=== PATIENT | male | born 2000 | race Caucasian/White ===

== ENCOUNTER 2024-07-21 08:15 | Inpatient (IN) | payer OTHER, SELFPAY ==
[2024-07-21] VITALS (10 sets, daily range): BP systolic 114–128; BP diastolic 70–90; PULSE 85–134; RESP 16–18; TEMP 36.5–37.2; O2SAT 95–100; BMI 24.6
--- NOTE | 2024-07-21 08:29 | ED.RN ---
Sx started Wednesday and have been worse. Now hard to swallow. [facility] tested him for strep and covid were both negative.
--- NOTE | 2024-07-21 08:44 | CT_ITS ---
STUDY: CT SOFT TISSUE NECK WITH CONTRAST REASON FOR EXAM: Male, 23 years old. Peritonsillar abscess ?? RADIATION DOSAGE (If Supplied By Facility): CTDIvol = ( 14.97 ) mGy, DLP = ( 403.90 ) mGycm TECHNIQUE: The patient was scanned in a multi-detector CT scanner. High resolution transaxial imaging was performed following intravenous administration of 100 CC ISOVUE 370. Sagittal and coronal images were reconstructed. Individualized dose optimization techniques were used for this CT. COMPARISON: None. FINDINGS: Normal bilateral parotid glands. Normal bilateral white washer piler spaces. Normal bilateral parapharyngeal spaces. Normal bilateral carotid spaces. Normal bilateral sublingual and submandibular glands and spaces. Normal visualized nasopharynx. Normal retropharyngeal space. Normal perivertebral space. There is diffuse enlargement of the left faucial tonsils . There is a subtle 9.1 mm x 13.5 mm area of decreased attenuation within the base of the left tonsil suggestive possible early abscess. The visualized tongue, tongue base and oropharynx are normal. The visualized cervical lymph nodes (levels I-) are within normal size limits, and maintain normal morphology. There is no demonstrated solid or cystic mass lesion. There is no abnormal contrast enhancement. Normal epiglottis, bilateral vallecula and hypopharynx. The pre-epiglottic and paraglottic adipose spaces are normal. Normal visualized bilateral piriform sinuses, aryepiglottic folds, vocal cords, and arytenoid-cricoid articulations. Normal subglottic trachea. Normal bilateral lobes of the thyroid gland. Normal visualized pulmonary apices. Normal visualized paranasal sinuses. Normal visualized cervical spine. CT/Soft Tissue Neck WITH Contrast IMPRESSION: Diffuse enlargement of the left faucial tonsils with a subtle 9.1 mm x 13.5 mm area of decreased attenuation suggestive of possible early abscess formation. Electronically Signed: Herb Whelan MD at 9:53 EDT ,
--- NOTE | 2024-07-21 08:46 | EDS_ITS ---
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 Starting to have difficulty swallowing. Saw the [facility] they did 2 different rapid strep's which were negative. He has been on no antibiotics. He has been using Tylenol and ibuprofen. Says it is getting worse. Never had any throat surgery. Prior similar symptoms: No Recent Illness/Hospitalization: No ROS ROS ED ROS Narrative Sore throat. Painful swallowing. Constitutional Constitutional ED: Denies chills or fever(s) Eyes Eyes: Denies blurry vision ENT ENT ED: Reports ear pain and sore throat Cardiovascular Cardiovascular: Denies chest pain Respiratory/Chest Respiratory/Chest: Denies cough Gastrointestinal Gastrointestinal: Denies abdominal pain Genitourinary Genitourinary ED: Denies dysuria Musculoskeletal Musculoskeletal: Denies arthralgias Integumentary Denies abscess Neurologic Neurologic: Denies headache(s) Psychiatric Psychiatric: Denies anxiety Endocrine Endocrinology: Denies cold intolerance Hematologic/Lymphatic Hematologic/Lymphatic: Denies easy bleeding Allergic/Immunologic Allergic/Immunologic ED: Denies mouth swelling PFSH PFSH Medical History no medical history no medical history Allergy/AdvReac Type Severity Reaction Status Date / Time No Known Allergies Allergy Verified 07/21/24 08:31 Surgical History no surgical history no surgical history Social History Smoking Status: Current some day smoker tobacco type: cigarettes EXAM Physical Exam Narrative Exam Narrative: 23-year-old male vital signs are stable is afebrile currently. Does not look septic or toxic. H EENT exam mild dry mucous membranes. Posterior pharynx left side appears to be enlarged or red. I do not see specific exudate. He may have a peritonsillar abscess. He is able to swallow but is difficult. TMs are unremarkable. Neck neck tenderness on the left. Trachea midline. No mass. Lungs clear to auscultation. Heart tachycardic no murmur. Rate of 110. Abdomen soft nontender. Back nontender. Moving all 4 extremities. Awake and alert. No focal motor deficits. Const Vital Signs: 07/21/24 08:17 07/21/24 08:19 07/21/24 09:19 Temperature 98.3 F 98.5 F 97.7 F L Temperature Source Temporal Oral Temporal Pulse Rate 134 H 108 H 100 Respiratory Rate 18 16 16 Blood Pressure 119/89 H 128/90 H 126/83 H Blood Pressure Mean 99 102 97 Pulse Ox 98 96 99 Oxygen Delivery Method Room Air Room Air Room Air Positive well nourished and well developed; Negative for obese, cachectic or contractures General Appearance ED: well developed and NAD; Negative for cachectic, contractures, cyanotic, diaphoretic or pallor Nutritional Appearance: Negative for cachectic or obese HEENT Reports dry mucous membranes normocephalic and atraumatic Mouth ED: Yes dry mucous membranes Mouth: dry mucous membranes Throat: posterior oropharynx abnormal Eyes PERRL and EOMs intact bilaterally General Eye ED: Negative for pale conjunctiva or scleral icterus Neck no lymphadenopathy, supple, no meningeal signs and no JVD General: Negative for anterior neck swelling or lymphadenopathy Resp normal respiratory effort and clear to auscultation bilaterally Effort and Inspection: Negative for retractions Auscultation: Negative for rales, rhonchi, wheezes or diminished lung sounds Cardio S1 normal heart sound, S2 normal heart sound and no murmurs Rate: tachycardic Rhythm: regular rhythm GI non-tender, non-distended and no masses Inspection: Negative for abdominal distention Palpation: soft; Negative for tender or guarding Back/Spine no CVA tenderness and normal ROM General Back: Negative for CVA tenderness Cervical Spine: Negative for cervical spine tenderness Thoracic Spine / Upper Back: Negative for thoracic spinal tenderness Lumbar Spine / Lower Back: Negative for lumbar spinal tenderness Sacrum: Negative for tenderness Extremity normal to inspection and full ROM General Extremety ED: Negative for cyanosis, tenderness or other findings General Extremity: Negative for cyanosis or other findings Neuro oriented x3 and CN's II-XII intact bilaterally Sensorium / Orientation: alert, oriented to person, oriented to place and oriented to time; Negative for orientation impaired, lethargic or stuporous Motor Exam: strength 5/5 throughout Psych mental status grossly normal Appearance: Negative for other Attitude: No agitated Mood & Affect: Negative for depressed, anxious or tearful Skin General Skin Exam: Negative for jaundice or pallor Lesions: no lesions Rashes: no rashes MDM MDM MDM Narrative Medical decision making narrative: Healthy 23-year-old male with sore throat and difficulty swallowing. Suspect peritonsillar abscess on the left. CAT scan labs are pending. IV fluids for mild dehydration. Repeat exam patient is doing well at 10:10 AM. I discussed his test results. He is comfortable with admission for IV antibiotics. To be started on IV Unasyn. He was already given Decadron and a liter normal saline. I have both the hospitalist and ENT on page. History & Record Review Discussion w/independent historian: Patient Additional record(s) reviewed:: No prior records Lab Data Attestation: I reviewed the patient's lab results. Lab results narrative: CBC shows white count 13.4. H&H 15 and 43. Platelets 256. Electrolytes show gap 9. Normal BUN and creatinine 12 and 1.1. Glucose 108. Monoscreen negative. CAT scan CT soft tissue of the neck is consistent with left peritonsillar abscess. Labs: Laboratory Results - last 24 hr 07/21/24 08:51 WBC 13.4 H RBC 4.87 Hgb 15.1 Hct 43.6 MCV 89.5 MCH 31.0 MCHC 34.6 RDW Std Deviation 36.6 RDW Coeff of Sylvester 11.2 L Plt Count 256 MPV 9.4 Immature Gran % (Auto) 0.500 Neut % (Auto) 79.0 H Lymph % (Auto) 10.5 L [place] % (Auto) 9.6 Eos % (Auto) 0.1 Baso % (Auto) 0.3 Absolute Neuts (auto) 10.6 H Absolute Lymphs (auto) 1.41 Nucleated RBC % 0 Sodium 137 Potassium 3.8 Chloride 104 Carbon Dioxide 24.0 Anion Gap 9 BUN 12 Creatinine 1.13 Estim Creat Clear Calc 100.04 Est GFR (MDRD) Af Amer 105 Est GFR (MDRD) Non-Af 87 BUN/Creatinine Ratio 10.6 Glucose 108 H Calcium 10.3 H Monoscreen Negative Radiography Diagnostic Testing: Clinical Impression(s) from Imaging Studies Soft Tissue Neck CT 07/21/24 08:44 IMPRESSION: Diffuse enlargement of the left faucial tonsils with a subtle 9.1 mm x 13.5 mm area of decreased attenuation suggestive of possible early abscess formation. Electronically Signed: Herb Whelan MD at 9:53 EDT , Discharge Plan Dx/Rx/DC Orders Clinical Impression: Abscess, peritonsillar, Leukocytosis, Difficulty in swallowing Disposition Disposition: Acute Care Hospital [facility]
[2024-07-21] MEDS: 0.9% Normal Saline (1000mL) 1,000 ML 1000 ML IV (08:53)
[2024-07-21] MEDS: dexAMETHasone 10 MG/ML Vial IV (08:54)
[2024-07-21 08:59] LABS: Absolute Lymphocyte Count 1.41 X10^3/uL (0.83-4.51); Absolute Neutrophil Count 10.6 X10^3/uL (2.0-7.7); Basophil# 0.04 X10^3/uL; Basophil% 0.3 % (0-1); Eosinophil# 0.01 X10^3/uL; Eosinophils% 0.1 % (0-5); Hematocrit 43.6 % (40-54); Hemoglobin 15.1 g/dL (13.0-16.5); Lymphocyte # 1.41 X10^3/ul (0.83-4.51); Lymphocyte % 10.5 % (19-41); Mean Corp Hgb Conc 34.6 g/dL (32-36); Mean Corpuscular Volume 89.5 fL (80-94); Mean Platelet Vol. 9.4 fl (6.2-12.0); Monocyte# 1.29 X10^3/uL; Monocyte% 9.6 % (0-10); NRBC Flagged by Analyzer 0 % (0-5); Platelet Count 256 K/mm3 (150-450); RBC Distribution Width CV 11.2 % (11.6-14.6); RBC Distribution Width SD 36.6 fl (35.1-43.9); Red Blood Count 4.87 M/mm3 (4.6-6.2); White Blood Count 13.4 K/mm3 (4.4-11.0)
[2024-07-21 09:13] LABS: Anion Gap 9 (5-15); BUN 12 mg/dL (7-18); BUN/Creat Ratio 10.6 RATIO (10-20); Calcium,Total 10.3 mg/dL (8.5-10.1); Chloride 104 mmol/L (98-107); Creatinine, Serum 1.13 mg/dL (0.70-1.30); EST Glomerular Filtration Rate 87 mL/min (>60); Est Glom Filt Rate - Afr Amer 105 mL/min (>60); Estimated Creatinine Clearance 100.04 ml/min; Glucose 108 mg/dL (74-106); Potassium 3.8 mmol/L (3.5-5.1); Sodium Level 137 mmol/L (136-145)
[2024-07-21 09:24] LABS: Internal QC Validated? YES +Cl - CLEAR BKGD; Monotest Negative (Negative); Record Kit Lot#, Mono 13241033
--- NOTE | 2024-07-21 10:13 | HP.PCM.HOS_ITS ---
HPI - General General Date of Admission: 07/21/24 Date of Service: 07/21/24 Chief Complaint: sore throat HPI Narrative CAESAR HAND, is a 23 M who is a student at [employer] who presents via the ED on 07/21/2024 with a complaint of sore throat. His symptoms had been going on for 3 days prior to admission, and gradually worsening. HE was now having difficulty swallowing. He denied any fever, chills, chest pain, palpitations, dizziness, nausea, vomiting or any other symptoms. Review of systems was otherwise negative. He was seen in the [facility] clinic and had 2 rapid strep tests that were negative. Vitals in the ED were BP of 119/80, NE of 104, RR of 16 and temp of 99F. He was saturating at 96% on room air. CBC shwoed hb of 15.1, wbc of 13.4 and platelets of 256. Chemistry was unremarkable, apart from calcium level of 10.3. Monospot screen was negative.Soft tissue neck CT showed diffuse enlargement of the left faucial tonsils with a ubtle 9.1mm x 13.5mm area of decreased attenuation suggestive of possible early abscess formation. HE is being admitted to be managed for peritonsillar abscess. [facility] Medical History no medical history Home Medications ?Medication ?Instructions ?Recorded ?Last Taken ?Type acetaminophen 500 mg tablet 1,000 mg PO Q6H PRN fever or pain 07/21/24 07/20/24 History multivitamin 1 tab PO DAILY 07/21/24 07/20/24 History Allergy/AdvReac Type Severity Reaction Status Date / Time No Known Allergies Allergy Verified 07/21/24 08:31 Surgical History no surgical history Social History Smoking Status: Never smoker ROS Constitutional Constitutional: Reports chills and fever(s); Denies anorexia, fatigue or weakness Eyes Eyes: Denies change in vision ENT HEENT: Reports dysphagia and sore throat; Denies epistaxis, headache(s), nasal congestion, nasal discharge, post nasal drip or sinus pressure Cardiovascular Cardiovascular: Denies chest pain, dyspnea on exertion, edema, lightheadedness, orthopnea, palpitations, paroxysmal nocturnal dyspnea, rapid heart rate or syncope Respiratory/Chest Respiratory/Chest: Denies cough, dyspnea, productive cough, shortness of breath at rest or shortness of breath with exertion Gastrointestinal Gastrointestinal: Denies abdominal pain, constipation, diarrhea, dyspepsia, nausea or vomiting Genitourinary Genitourinary: Denies burning urination or dysuria Musculoskeletal Musculoskeletal: Denies joint pain Neurologic Neurologic: Denies confusion, dizziness, focal weakness, headache(s), numbness, seizures or syncope Psychiatric Psychiatric: Denies anxiety or depression Endocrine Endocrinology: Denies change in body appearance Vital Signs Vital Signs Vital Signs: 07/21/24 08:17 07/21/24 08:19 07/21/24 09:19 Temperature 98.3 F 98.5 F 97.7 F L Temperature Source Temporal Oral Temporal Pulse Rate 134 H 108 H 100 Respiratory Rate 18 16 16 Blood Pressure 119/89 H 128/90 H 126/83 H Blood Pressure Mean 99 102 97 Pulse Ox 98 96 99 Oxygen Delivery Method Room Air Room Air Room Air 07/21/24 10:00 Temperature 99.0 F Temperature Source Oral Pulse Rate 104 H Respiratory Rate 16 Blood Pressure 119/80 Blood Pressure Mean 93 Pulse Ox 96 Oxygen Delivery Method Room Air Weight Weight: 162 lb Body Mass Index (BMI) 24.6 Physical Exam Const alert, oriented x3 and no apparent distress General Appearance: cooperative HEENT normocephalic, head/scalp atraumatic, hearing grossly normal bilaterally, moist oral mucous membranes and oropharynx normal HEENT Narrative: throat examination shows massively swollen and erythematous tonsils. His voice is muffled Mouth: oral and palatal mucosa normal Eyes PERRL, EOMs intact bilaterally and conjunctivae normal Neck supple and no JVD Resp normal respiratory effort, no retractions, no use of accessory muscles and clear to auscultation bilaterally Cardio regular rate, regular rhythm, S1 normal heart sound, S2 normal heart sound and no murmurs GI normal to inspection, nondistended, normoactive bowel sounds, soft to palpation, non-tender and non-distended Extremity normal to inspection, full ROM and no clubbing, cyanosis or edema Neuro oriented x3, CN's II-XII intact bilaterally, moves all extremities and no focal motor deficits Sensorium / Orientation: awake and alert Motor Exam: strength 5/5 throughout Psych affect normal Results Lab / Micro Data 07/21/24 08:51 07/21/24 08:51 Labs: Laboratory Results - last 24 hr 07/21/24 08:51: WBC 13.4 H, RBC 4.87, Hgb 15.1, Hct 43.6, MCV 89.5, MCH 31.0, MCHC 34.6, RDW Std Deviation 36.6, RDW Coeff of Sylvester 11.2 L, Plt Count 256, MPV 9.4, Immature Gran % (Auto) 0.500, Neut % (Auto) 79.0 H, Lymph % (Auto) 10.5 L, [place] % (Auto) 9.6, Eos % (Auto) 0.1, Baso % (Auto) 0.3, Absolute Neuts (auto) 10.6 H, Absolute Lymphs (auto) 1.41, Nucleated RBC % 0, Sodium 137, Potassium 3.8, Chloride 104, Carbon Dioxide 24.0, Anion Gap 9, BUN 12, Creatinine 1.13, Estim Creat Clear Calc 100.04, Est GFR (MDRD) Af Amer 105, Est GFR (MDRD) Non-Af 87, BUN/Creatinine Ratio 10.6, Glucose 108 H, Calcium 10.3 H, Monoscreen Negative Imaging Radiology Impression Soft Tissue Neck CT 07/21/24 08:44 IMPRESSION: Diffuse enlargement of the left faucial tonsils with a subtle 9.1 mm x 13.5 mm area of decreased attenuation suggestive of possible early abscess formation. Electronically Signed: Herb Whelan MD at 9:53 EDT Reading Location ID and State: [address] [place] [address] , Service support , Assessment & Plan Assessment/Plan (1) Abscess, peritonsillar: PLAN: Plan #Peritonsillar abscess * admit to med surg * complained of a sore throat for 4 days prior to admission, with difficulty swallowing. Symptoms had gradually worsened * had negative rapid strep test in the [facility] * get throat swab for culture * CT soft tissue neck showed diffuse enlargement of the left faucial tonsils with a subtle 9.1mm x 13.5mm area of decreased attenuation suggestive of possible early abscess formation * started on IV unasyn in the ED; will continue * hydrate gently with iVF * PO tylenol, PO oxycodone and IV morphine prn for pain * consult ENT if dysphagia worsens * give IV solumedrol 40mg q8 * DVT prophylaxis: low risk. Encourage ambulation Charges/Coding Visit Charges Inpatient E&M: 37539 Init Hosp L3
[2024-07-21] MEDS: Ondansetron 4 MG/2 ML Vial IV (10:57)
[2024-07-21] MEDS: morphine 8 MG/ML Syringe 6 MG IV (10:58)
[2024-07-21] MEDS: Ampicillin/Sulbactam 3 GM in 0.9% Normal Saline (100mL MB+) 100 ML IV ×3 (10:58→23:45)
[2024-07-21] MEDS: 0.9% Normal Saline (1000mL) 1,000 ML 150 ML IV ×2 (12:55→20:13)
--- NOTE | 2024-07-21 17:41 | NURSING ---
pharmacy notified 1800 unasyn missing-please send
--- NOTE | 2024-07-21 17:44 | NURSING ---
arrives from ER, pt able to swallow own saliva and clear liquids without difficulty-voice sounds throaty when he talks denies any trouble breathing, pox is 98% on room air-HOB is 60 degrees elevated-skin color pink
[2024-07-22 02:58] VITALS: BP 96/54; PULSE 60; RESP 14; TEMP 36.8; O2SAT 100
[2024-07-22 05:39] LABS: Absolute Lymphocyte Count 1.37 X10^3/uL (0.83-4.51); Absolute Neutrophil Count 10.1 X10^3/uL (2.0-7.7); Basophil# 0.01 X10^3/uL; Basophil% 0.1 % (0-1); Hematocrit 39.5 % (40-54); Hemoglobin 13.4 g/dL (13.0-16.5); Lymphocyte # 1.37 X10^3/ul (0.83-4.51); Lymphocyte % 11.3 % (19-41); Mean Corp Hgb Conc 33.9 g/dL (32-36); Mean Corpuscular Hgb 30.9 pg (27.0-32.0); Mean Corpuscular Volume 91.2 fL (80-94); Mean Platelet Vol. 9.5 fl (6.2-12.0); Monocyte% 4.9 % (0-10); NRBC Flagged by Analyzer 0 % (0-5); Neutrophil # 10.07 X10^3/uL (2.7-7.7); Platelet Count 280 K/mm3 (150-450); RBC Distribution Width CV 10.9 % (11.6-14.6); Red Blood Count 4.33 M/mm3 (4.6-6.2); White Blood Count 12.1 K/mm3 (4.4-11.0)
[2024-07-22 06:01] LABS: Anion Gap 6 (5-15); BUN 13 mg/dL (7-18); BUN/Creat Ratio 16.4 RATIO (10-20); Calcium,Total 9.8 mg/dL (8.5-10.1); Chloride 108 mmol/L (98-107); Creatinine, Serum 0.79 mg/dL (0.70-1.30); EST Glomerular Filtration Rate 131 mL/min (>60); Est Glom Filt Rate - Afr Amer 158 mL/min (>60); Glucose 146 mg/dL (74-106); Potassium 4.4 mmol/L (3.5-5.1); Sodium Level 138 mmol/L (136-145)
[2024-07-22] MEDS: Ampicillin/Sulbactam 3 GM in 0.9% Normal Saline (100mL MB+) 100 ML IV ×3 (06:30→17:24)
[2024-07-22 08:10] VITALS: BP 114/59; PULSE 70; RESP 16; TEMP 36.8; O2SAT 98
--- NOTE | 2024-07-22 10:40 | CASEMGMT ---
GHADA STOKES Assessment Face to Face with patient for initial transition planning/care coordination assessment. GHADA STOKES introduced self and role at [facility], pt voices understanding. Pt is A&Ox4 and is resting comfortably in bed and is calm. Care providers, pharmacy, and demographics verified. PCP: No PCP. Declined list Specialists: denies Preferred Pharmacy: [facility] Insurance: MMO Prescription Benefit: Yes LNOK: Ene Whitlock (M), Roman Whitlock (F) Living Arrangements: Pt lives with 3 roommates in a single story home with 2 steps to enter ADLs/IADLs: Ind Transportation: Self, GF, Parents DME: Denies HHC/SNF: Denies Pt?s goal: Home Plan: Home no needs. 6-click=24. Pt denies needs. Pt denies further questions or concerns. Eduardo Dutta RN, CM
[2024-07-22] MEDS: FLU VACC 2024-25(6MOS UP)/PF 45 MCG/0.5 ML SYRINGE IM (11:22)
[2024-07-22] MEDS: 0.9% Saline Lock 10 ML Syringe IV ×2 (11:23→14:09)
--- NOTE | 2024-07-22 12:30 | PN_ITS ---
Subjective Subjective Patient seen and examined. He felt much better today. He had no active complaints. He states his voice is much clearer in his back. However his voice usually sounds. His sore throat has also improved and he has minimal pain. Review of symptoms otherwise negative. His girlfriend was by his bedside. Objective Data Objective Data Vital Signs: Vital Signs Temp Pulse Resp BP Pulse Ox O2 Del Method 98.2 F 70 16 114/59 L 98 Room Air 07/22/24 08:10 07/22/24 08:10 07/22/24 08:10 07/22/24 08:10 07/22/24 08:10 07/22/24 08:10 Oxygen Delivery Method Room Air Weight: 162 lb Body Mass Index (BMI) 24.6 Intake & Output: Intake and Output for Last 24 Hours 07/20/24 07/21/24 07/22/24 23:59 23:59 23:59 Intake Total 3474 / 3974 2166 / 2166 Balance 3474 / 3974 2166 / 2166 Lab / Micro Data 07/22/24 05:25 07/22/24 05:25 Labs: Laboratory Results - last 24 hr 07/22/24 05:25: WBC 12.1 H, RBC 4.33 L, Hgb 13.4, Hct 39.5 L, MCV 91.2, MCH 30.9, MCHC 33.9, RDW Std Deviation 37.0, RDW Coeff of Sylvester 10.9 L, Plt Count 280, MPV 9.5, Immature Gran % (Auto) 0.700, Neut % (Auto) 83.0 H, Lymph % (Auto) 11.3 L, [place] % (Auto) 4.9, Eos % (Auto) 0.0, Baso % (Auto) 0.1, Absolute Neuts (auto) 10.1 H, Absolute Lymphs (auto) 1.37, Nucleated RBC % 0, Sodium 138, Potassium 4.4, Chloride 108 H, Carbon Dioxide 24.0, Anion Gap 6, BUN 13, Creatinine 0.79, Estim Creat Clear Calc 143.10, Est GFR (MDRD) Af Amer 158, Est GFR (MDRD) Non-Af 131, BUN/Creatinine Ratio 16.4, Glucose 146 H, Calcium 9.8 Physical Exam Const alert, oriented x3 and no apparent distress General Appearance: cooperative and well developed HEENT normocephalic, head/scalp atraumatic, hearing grossly normal bilaterally, moist oral mucous membranes and oropharynx normal HEENT Narrative: voice is much more clear and audible Eyes PERRL, EOMs intact bilaterally and conjunctivae normal Neck supple and no JVD Resp normal respiratory effort, no retractions, no use of accessory muscles and clear to auscultation bilaterally Cardio regular rate, regular rhythm, S1 normal heart sound, S2 normal heart sound and no murmurs GI normal to inspection, nondistended, normoactive bowel sounds, soft to palpation, non-tender and non-distended Extremity normal to inspection, full ROM and no clubbing, cyanosis or edema Neuro oriented x3, CN's II-XII intact bilaterally, moves all extremities and no focal motor deficits Sensorium / Orientation: awake and alert Motor Exam: strength 5/5 throughout Psych affect normal Assessment & Plan Assessment/Plan (1) Abscess, peritonsillar: PLAN: Plan #Peritonsillar abscess * feels much better today. * Sore throat has resolved and his voice is back to baseline * get throat culture pending * CT soft tissue neck showed diffuse enlargement of the left faucial tonsils with a subtle 9.1mm x 13.5mm area of decreased attenuation suggestive of possible early abscess formation * on IV unasyn and IV solumedrol * PO tylenol, PO oxycodone and IV morphine prn for pain * consult ENT if dysphagia worsens * IV solumedrol 40mg q8 * advance to soft, then regular diet as tolerated. * wbc has trended down slightly to 12. * DVT prophylaxis: low risk. Encourage ambulation Charges/Coding Visit Charges Inpatient E&M: 55863 Subs Hosp L2
[2024-07-22 14:18] VITALS: BP 121/83; PULSE 68; RESP 16; TEMP 36.5; O2SAT 96
[2024-07-22 22:16] VITALS: BP 122/79; PULSE 71; RESP 14; TEMP 37; O2SAT 99
[2024-07-23] MEDS: Ampicillin/Sulbactam 3 GM in 0.9% Normal Saline (100mL MB+) 100 ML IV ×2 (00:45→05:41)
[2024-07-23 04:00] VITALS: BP 127/76; PULSE 57; RESP 16; TEMP 36.4; O2SAT 99
[2024-07-23 07:50] LABS: Absolute Lymphocyte Count 1.56 X10^3/uL (0.83-4.51); Absolute Neutrophil Count 11.8 X10^3/uL (2.0-7.7); Basophil# 0.03 X10^3/uL; Basophil% 0.2 % (0-1); Hematocrit 42.2 % (40-54); Hemoglobin 13.9 g/dL (13.0-16.5); Lymphocyte # 1.56 X10^3/ul (0.83-4.51); Lymphocyte % 11.1 % (19-41); Mean Corp Hgb Conc 32.9 g/dL (32-36); Mean Corpuscular Hgb 30.2 pg (27.0-32.0); Mean Corpuscular Volume 91.7 fL (80-94); Mean Platelet Vol. 10.3 fl (6.2-12.0); Monocyte# 0.64 X10^3/uL; Monocyte% 4.5 % (0-10); NRBC Flagged by Analyzer 0 % (0-5); Neutrophil # 11.79 X10^3/uL (2.7-7.7); Neutrophil % 83.8 % (47-70); Platelet Count 344 K/mm3 (150-450); RBC Distribution Width SD 37.3 fl (35.1-43.9); White Blood Count 14.1 K/mm3 (4.4-11.0)
[2024-07-23 08:03] LABS: Anion Gap 8 (5-15); BUN 13 mg/dL (7-18); BUN/Creat Ratio 16.7 RATIO (10-20); Calcium,Total 9.8 mg/dL (8.5-10.1); Chloride 106 mmol/L (98-107); Creatinine, Serum 0.78 mg/dL (0.70-1.30); EST Glomerular Filtration Rate 133 mL/min (>60); Est Glom Filt Rate - Afr Amer 161 mL/min (>60); Estimated Creatinine Clearance 144.94 ml/min; Glucose 150 mg/dL (74-106); Potassium 4.2 mmol/L (3.5-5.1); Sodium Level 140 mmol/L (136-145)
[2024-07-23 08:45] VITALS: BP 115/75; PULSE 60; RESP 18; TEMP 36.4; O2SAT 98
--- NOTE | 2024-07-23 10:04 | DCINST_ITS ---
Discharge Instructions Diet Discharge Diet: No restrictions Activity Discharge Activity: Return to Normal Activity Weight Bearing Status: Weight bearing as tolerated Dressing / Incision Call your doctor if you observe: Fever of 101 or Higher, Shortness of breath, Dizziness, Swelling in the ankles and Chest pain Follow Up Care Test Results: Test results from this visit will be discussed in further detail at your follow- up appointment, if applicable. Discharge Plan Admission Admit Date/Time: 07/21/24 10:22 Primary Reason for Your Visit: peritonsillar abscess Attending Provider: Courtney Mello Primary Care Provider: Care PhysicianBrina Primary Instructions Patient Instructions: Peritonsillar Abscess Discharge Orders/Prescriptions Prescriptions: New amoxicillin-pot clavulanate 875-125 mg tablet 1 tab PO BID Qty: 14 0RF oxycodone 5 mg tablet 5 mg PO Q6H PRN (Reason: pain) 3 Days Qty: 12 0RF Continued acetaminophen 500 mg tablet 1,000 mg PO Q6H PRN (Reason: fever or pain) multivitamin Tablet 1 tab PO DAILY Referrals / Follow Up: Jonah Burgos MD [Med Staff - Active Staff] - Within 2 Weeks Care Physician,No Primary [Primary Care Provider] - Disposition Disposition (needs filled in before D/C Order can be placed): Home, Self Care
--- NOTE | 2024-07-23 10:04 | DS.PCM_ITS ---
Providers Date of Admission: 07/21/24 Date of Discharge: 07/23/24 Primary Care Physician: No Primary Care Phys Reason For Visit: PERITONSILLAR ABSCESS Diagnosis Discharge Diagnosis (1) Abscess, peritonsillar: Status: Acute Code(s): J36 - Peritonsillar abscess Plan #Peritonsillar abscess * feels much better today. * Sore throat has resolved and his voice is back to baseline * get throat culture pending * CT soft tissue neck showed diffuse enlargement of the left faucial tonsils with a subtle 9.1mm x 13.5mm area of decreased attenuation suggestive of possible early abscess formation * on IV unasyn and IV solumedrol * PO tylenol, PO oxycodone and IV morphine prn for pain * consult ENT if dysphagia worsens * IV solumedrol 40mg q8 * advance to soft, then regular diet as tolerated. * wbc has trended down slightly to 12. * DVT prophylaxis: low risk. Encourage ambulation Medications at Discharge Home Medications acetaminophen 500 mg tablet 1,000 mg PO Q6H PRN fever or pain 07/21/24 multivitamin 1 tab PO DAILY 07/21/24 amoxicillin 875 mg-potassium clavulanate 125 mg tablet 1 tab PO BID #14 tabs 07/23/24 oxycodone 5 mg tablet 5 mg PO Q6H PRN pain 3 days #12 tabs 07/23/24 Hospital Course Operations None Procedures None Summary of Care Provided Minutes Spent on Discharge: 45 Hospital Course: CAESAR HAND, is a 23 M who is a student at the [employer] who presents via the ED on 07/21/2024 with a complaint of sore throat. His symptoms had been going on for 3 days prior to admission, and gradually worsening. HE was now having difficulty swallowing. He denied any fever, chills, chest pain, palpitations, dizziness, nausea, vomiting or any other symptoms. Review of systems was otherwise negative. He was seen in the [facility] clinic and had 2 rapid strep tests that were negative. Vitals in the ED were BP of 119/80, IN of 104, RR of 16 and temp of 99F. He was saturating at 96% on room air. CBC shwoed hb of 15.1, wbc of 13.4 and platelets of 256. Chemistry was unremarkable, apart from calcium level of 10.3. Monospot screen was negative.Soft tissue neck CT showed diffuse enlargement of the left faucial tonsils with a subtle 9.1mm x 13.5mm area of decreased attenuation suggestive of possible early abscess formation. He was admitted to be managed for peritonsillar abscess. He was started on IV Unasyn and also started on IV Solu-Medrol. His symptoms rapidly improved and he felt much better by the next day. He was able to swallow and his muffled voice resolved. He was advanced to regular diet and tolerated it. His WBC was 14.1 at time of discharge but he had been on steroids and so it was suspected that this would affect his white cell count. Clinically however he had improved markedly. He remained stable and was discharged home on 07/23/2024. He was discharged on p.o. Augmentin 875/125 mg twice daily for 7-day course. He was also given p.o. oxycodone 5 mg every 6 hours as needed for total of 12 tablets to last 3 days. OARRS score was checked and no red flags were seen. He is to follow-up with his primary care doctor within 1 to 2 weeks and was also referred to ENT for evaluation to see if he would need tonsillectomy eventually. Patient was seen and examined prior to discharge. He had no complaints and had an uneventful night. Review of symptoms otherwise negative. Labs and vitals reviewed. Home medication reviewed and reconciled. Physical Exam Const alert, oriented x3 and no apparent distress General Appearance: cooperative, comfortable, well kempt and well developed Orientation / Consciousness: awake Exam Limitations: no limitations HEENT normocephalic, head/scalp atraumatic, hearing grossly normal bilaterally, moist oral mucous membranes and oropharynx normal Mouth: oral and palatal mucosa normal Eyes PERRL, EOMs intact bilaterally and conjunctivae normal Neck supple and no JVD Resp normal respiratory effort, no retractions, no use of accessory muscles and clear to auscultation bilaterally Cardio regular rate, regular rhythm, S1 normal heart sound, S2 normal heart sound and no murmurs GI normal to inspection, nondistended, normoactive bowel sounds, soft to palpation, non-tender and non-distended Extremity normal to inspection, full ROM and no clubbing, cyanosis or edema Skin no rashes or lesions noted Neuro oriented x3, CN's II-XII intact bilaterally, moves all extremities and no focal motor deficits Sensorium / Orientation: awake and alert Motor Exam: strength 5/5 throughout Psych affect normal Weight / BMI Weight Weight: 162 lb Body Mass Index (BMI) 24.6 ABG / Lab / Microbiology Data 07/23/24 06:23 07/23/24 06:23 Laboratory: Laboratory Results - last 24 hr 07/23/24 06:23: WBC 14.1 H, RBC 4.60, Hgb 13.9, Hct 42.2, MCV 91.7, MCH 30.2, MCHC 32.9, RDW Std Deviation 37.3, RDW Coeff of Sylvester 11.0 L, Plt Count 344, MPV 10.3, Immature Gran % (Auto) 0.400, Neut % (Auto) 83.8 H, Lymph % (Auto) 11.1 L, Hughes % (Auto) 4.5, Eos % (Auto) 0.0, Baso % (Auto) 0.2, Absolute Neuts (auto) 11.8 H, Absolute Lymphs (auto) 1.56, Nucleated RBC % 0, Sodium 140, Potassium 4.2, Chloride 106, Carbon Dioxide 26.0, Anion Gap 8, BUN 13, Creatinine 0.78, Estim Creat Clear Calc 144.94, Est GFR (MDRD) Af Amer 161, Est GFR (MDRD) Non-Af 133, BUN/Creatinine Ratio 16.7, Glucose 150 H, Calcium 9.8 D/C Instructions Discharge Diet: No restrictions Weight Bearing Status: Weight bearing as tolerated Call your doctor if you observe: Fever of 101 or Higher, Shortness of breath, Dizziness, Swelling in the ankles and Chest pain Meaningful Use Info Meaningful Use Meaningful Use Diagnoses (Choose all that apply): None applicable Ischemic Stroke Statin Dosing Therapy Reference: STATIN DOSE THERAPY REFERENCE: * Patients > 75 years receive moderate or high dose statin therapy. * Patients 75 years or YOUNGER should receive HIGH intensity statin dose unless contraindicated. You will be required to document reason for non-treatment if statin daily dose does not meet guidelines. HIGH DOSE STATIN THERAPY DAILY Atorvastatin > than or = to 40 mg Rosuvastatin > than or = to 20 mg Amlodipine + Atorvastatin > than or = to 2.5/40 mg Ezetimibe + Simvastatin 10/80 mg Simvastatin 80mg Discharge Plan Admission Admit Date/Time: 07/21/24 10:22 Primary Reason for Your Visit: peritonsillar abscess Attending Provider: Courtney Mello Primary Care Provider: Care Physician,No Primary Instructions Patient Instructions: Peritonsillar Abscess Discharge Orders/Prescriptions Prescriptions: New amoxicillin-pot clavulanate 875-125 mg tablet 1 tab PO BID Qty: 14 0RF oxycodone 5 mg tablet 5 mg PO Q6H PRN (Reason: pain) 3 Days Qty: 12 0RF Continued acetaminophen 500 mg tablet 1,000 mg PO Q6H PRN (Reason: fever or pain) multivitamin Tablet 1 tab PO DAILY Referrals / Follow Up: Jonah Burgos MD [Med Staff - Active Staff] - Within 2 Weeks Care Physician,No Primary [Primary Care Provider] - Disposition Disposition (needs filled in before D/C Order can be placed): Home, Self Care Charges/Coding Visit Charges Inpatient E&M: 43487 Disch Hosp >30min
== END 2024-07-23 10:23 | disposition home or self-care (01) | DRG 153 ==
LOC: ED 10:10 → MS3 10:31
PROVIDERS: Admitting Provider Student in an Organized Health Care Education/Training Program; Emergency Provider Emergency Medicine; Visit Provider Student in an Organized Health Care Education/Training Program
DX: J36 Peritonsillar abscess (principal); E86.0 Dehydration; F17.210 Nicotine dependence, cigarettes, uncomplicated; R13.10 Dysphagia, unspecified; Z23 Encounter for immunization
CPT/HCPCS: 36415; 70491; 80048; 85025; 86308; 87070; 90656; 99284; J7030; Q9967; A4216; J0295; J2405